=== PATIENT | female | born 1965 | race Caucasian/White ===

== ENCOUNTER 2017-09-18 07:21 | Inpatient (IN) | payer OTHER ==
[~2017-09-18] VITALS: Ht 167.6 cm; Wt 91.6 kg
[2017-09-18 07:26] VITALS: BP 120/78
--- NOTE | 2017-09-18 07:30 | NUR ---
RECEIVED PT FROM MOVING WORKER NURSE. PT ASLEEP IN BED. BED IN LOWEST POSITION. CALL LIGHT WITHIN REACH. Addendum: 09/18/17 at 1503 by Bushra Vidal RN DISCARD WRONG PT Addendum: 09/18/17 at 1503 by Bushra Vidal RN DISCARD WRONG PT
--- NOTE | 2017-09-18 07:32 | NUR ---
PT. CAME INTO ED W/ABD PAIN X 2 DAYS. PT DENIES ANY VOMITING, BUT STARTED W/ NAUSEA TODAY. PT. HAS 9/10 PAIN ALL OVER ABD, PT. STATES "MY APPETITE HAS DECREASED BECAUSE EVERYTIME I EAT MY STOMACH HURTS". RR EVEN AND UNLABORED. ABD ROUND AND SOFT AND TENDER UPON PALPATION. DENIES SOB/ CP, AND COUGH AT THIS TIME. NO MEDICAL HX AND NO ALLERGIES. PT. AAOX4. Babar ALCANTAR NOTIFIED. WILL CONTINUE TO MONITOR.
[2017-09-18] MEDS ORDERED: NACL 0.9% 1,000 ML IV ONE (08:05)
[2017-09-18] MEDS ORDERED: METOCLOPRAMIDE 10 MG/2 ML INJ VIAL IVP ONE (08:05)
[2017-09-18] MEDS ORDERED: KETOROLAC 30 MG/ML VIAL IVP ONE (08:05)
--- NOTE | 2017-09-18 08:30 | NUR ---
PT. IN BED RESTING, VSS, RR EVEN AND UNLABORED, BED IN LOWEST POSITION. WILL CONTINUE TO MONITOR.
[2017-09-18 08:35] LABS: APPEARANCE,URINE CLEAR (CLEAR); BILIRUBIN,URINE NEGATIVE (NEGATIVE); BLOOD, URINE 1+ (NEGATIVE); COLOR,URINE YELLOW (YELLOW); LEUKOCYTE ESTERASE ,URINE TRACE (NEGATIVE); NITRITE, URINE NEGATIVE (NEGATIVE); UGLUCOSE NEGATIVE (NEGATIVE)
[2017-09-18 08:37] LABS: BASOPHILS % (AUTO) 0.2 % (0.0-2.0); EOSINOPHILS % (AUTO) 0.1 % (0.0-4.0); HEMATOCRIT 39.5 % (36-48); HEMOGLOBIN 12.9 g/dL (12.0-16.0); LYMPHOCYTES # (AUTO) 1.1 K/uL (2.5-16.5); LYMPHOCYTES % (AUTO) 13.4 % (20.5-51.1); MEAN CORPUSCULAR HEMOGLOBIN 25 pg (27-31); MEAN CORPUSCULAR HGB CONC 33 g/dL (33-37); MEAN CORPUSCULAR VOLUME 76.3 fL (80-94); MONOCYTES # (AUTO) 0.5 K/uL (0.8-1.0); MONOCYTES % (AUTO) 6.5 % (1.7-9.3); NEUTROPHILS # (AUTO) 6.3 K/uL (1.8-7.7); NEUTROPHILS % (AUTO) 79.8 % (42.2-75.2); PLATELET COUNT (AUTO) 159 K/uL (140-450); RED BLOOD CELL COUNT(AUTO) 5.17 MIL/uL (4.20-5.40); RED CELL DISTRIBUTION WIDTH 13.6 % (11.6-13.7); WHITE BLOOD COUNT (AUTO) 7.9 K/uL (4.8-10.8)
[2017-09-18 08:57] LABS: CARBON DIOXIDE 28.4 mmol/L (21-32); CREATININE 0.8 mg/dL (0.6-1.3); POTASSIUM 3.4 mmol/L (3.5-5.1)
[2017-09-18 09:01] LABS: TOTAL BILIRUBIN 0.5 mg/dL (0.0-1.0)
[2017-09-18 09:06] LABS: RBC,URINE 0-5 (RARE) /HPF (0-5)
--- NOTE | 2017-09-18 09:30 | NUR ---
DUE MEDICATIONS GIVEN. WILL MONITOR V/S FOR HIGH B/P/ FAMILY AT BEDSIDE. EDUCATED PROVIDED ABOUT PLAN OF CARE. IV SITE WILL BE MOVED DUE TO BEING NOT PATENT. CALL LIGHT WITHIN REACH. WILL CONTINUE TO DO FREQ CHECKS. Addendum: 09/18/17 at 1508 by Bushra Vidal RN WRONG PT DISCARD
[2017-09-18] MEDS ORDERED: MORPHINE SULFATE 4 MG/ML SYR IVP ONE (10:15)
--- NOTE | 2017-09-18 10:17 | NUR ---
pt. resting in bed , pt. states " my pain is less now at a 3/10". Pt. AAOx3. Bed in lowest position. will continue to monitor.
[2017-09-18] MEDS ORDERED: MORPHINE SULFATE 4 MG/ML SYR IVP PRN (10:40)
[2017-09-18] MEDS ORDERED: ACETAMINOPHEN 325 MG TAB PO PRN (10:40)
[2017-09-18] MEDS ORDERED: ONDANSETRON 4 MG/2 ML VIAL IVP PRN (10:40)
[2017-09-18] MEDS ORDERED: MORPHINE SULFATE 2 MG/ML SYR IVP PRN (10:40)
[2017-09-18] MEDS ORDERED: HYDROcodone/APAP 5/325 MG 1 TAB TAB PO PRN (10:40)
--- NOTE | 2017-09-18 11:11 | NUR ---
Patient will be admitted to care of dr. Woodward . Admited to med surg . Will go to room 106A. Belongings list completed. Report to austen austin .
[2017-09-18 12:20] VITALS: BP 100/56
--- NOTE | 2017-09-18 12:20 | NUR ---
RECEIVED PT FROM ED NURSE. PT WALKED TO BED FROM [facility]. AAOX4, NO ACUTE DISTRESS, ABLE TO FOLLOW COMMANDS, IV LINE PATIENT. STARTED NACL @75 ML/HR. V/S STABLE, NO COMPLAINS OF PAIN. HAS NO SKIN BREAKDOWN. WILL GIVE DUE MEDICATIONS. PLAN OF CARE REVIEWED AND QUESTIONS ANSWERED. WILL CONTINUE FREQ ROUNDS. BED IN LOWEST POSITION, CALL, LIGHT WITH IN REACH, ORIENTATED TO ROOM AND HOSPITAL RULES.
[2017-09-18] MEDS ORDERED: FAMOTIDINE 20 MG/2 ML VIAL IV SCH (13:08)
--- NOTE | 2017-09-18 14:30 | NUR ---
PATIENT RESTING IN BED. DUE MEDICATIONS WILL BE GIVEN. CALL LIGHT WITHIN REACH, POSSESSIONS WITHIN REACH, BED IN LOWEST POSITION. WILL ENSURE FREQ ROUNDS.
--- NOTE | 2017-09-18 19:00 | NUR ---
PT ENDORSED TO CUT OFF SAWYER NURSE. PT IS STILL NPO. IV SITE WILL BE CHANGED. FAMILY AT BEDSIDE. Addendum: 09/18/17 at 1938 by Bushra Vidal RN FOLLOW UP WITH DR Sapna DIAS
--- NOTE | 2017-09-18 19:01 | NUR ---
RECEIVED BEDSIDE REPORT FROM DAY SHIFT NURSE RENO RN, PT STABLE, NO DISTRESS NOTED, IV TO L HAND 20G, PT STATED IT IS PAINFUL TO TOUCH AND FLUSH, WILL PUT IN NEW IV, PT ON ROOM AIR NO SOB, PT STATED PAIN IS TOLERABLE AT THIS MOMENT, INITIAL ASSESSMENT DONE, ALL SAFETY PRECAUTION MET, CALL LIGHT WITHIN REACH, FAMILY AT BESIDE, WILL CONTINUE TO MONITOR.
--- NOTE | 2017-09-18 19:40 | NUR ---
CALLED DR. SOTELO REGARDING PT CT RESULT, STATED UNDERSTANDING AND STATED THAT HE WILL SEE THE PATIENT.
[2017-09-18] MEDS: NACL 0.9% 1,000 ML IV SCH ×2 (19:55→23:56)
--- NOTE | 2017-09-18 19:55 | NUR ---
NEW IV INSERTED ON THE R HAND 22G, PATENT INTACT, OLD IV 20G FROM THE L HAND TAKEN OUT, PT TOLERATED WELL, CATHETER INTACT, PT STABLE, NO DISTRESS NTOED, CALL LIGHT WITHIN REACH, WILL CONTINUE TO MONITOR.
[2017-09-18] MEDS ORDERED: KETOROLAC 30 MG/ML VIAL IVP PRN (20:10)
--- NOTE | 2017-09-18 20:15 | NUR ---
PT STATED FEELING PAIN, BUT STATED THAT SHE DOES NOT WANT TO TAKE MORPHINE BECAUSE IT CAUSES HER TO HAVE NAUSEA AND SHE ALSO DOES NOT WANT TO TAKE NORCO BECAUSE IT CAUSES HER TO FEEL DIZZY, CALLED DR. CRYSTAL WHO IS GLUE MILL OPERATOR FOR DR. TARIQ DR. STATED TO GIVE PT TORADOL IVP 30MG, Q6H PRN PAIN. ENTERED IN 'S ORDER TO THE SYSTEM.
[2017-09-18] MEDS ORDERED: KETOROLAC 30 MG/ML VIAL ONE (20:17)
--- NOTE | 2017-09-18 20:20 | NUR ---
[facility] IS NOT AVAILABLE, OVERWRITTEN TORADOL 30MG, PER MD ORDER, ADMINISTERED TO PT, PT TOLERATED WELL, NO DISTRESS NOTED, CALL LIGHT WITHIN REACH, WILL CONTINUE TO MONITOR.
--- NOTE | 2017-09-18 22:01 | NUR ---
CHECKED ON PT, PT RESTING, NO DISTRESS NOTED, CALL LIGHT WITHIN REACH, WILL CONTINUE TO MONITOR.
[2017-09-19] VITALS: BP 100/63
--- NOTE | 2017-09-19 00:10 | NUR ---
CHECKED ON PT, PT SLEEPING, EASY TO AROUSE, V/S TAKEN, WNL, NO DISTRESS NOTED, CALL LIGHT WITHIN REACH, WILL CONTINUE TO MONITOR.
--- NOTE | 2017-09-19 03:04 | NUR ---
CHECKED ON PT, PT SLEEPING, NO DISTRESS NOTED, CALL LIGHT WITHIN REACH, WILL CONTINUE TO MONITOR.
--- NOTE | 2017-09-19 04:34 | NUR ---
RECEIVED PT FROM JOÃO CONTINUITY OF CARE. PT IS RESTING QUIETLY.
--- NOTE | 2017-09-19 04:34 | NUR ---
ENDORSED PT TO SANTOSH RUIZ, FOR CONTINUOUS OF CARE, PT IN STABLE CONDITION, NO DISTRESS NOTED, CALL LIGHT WITHIN REACH.
[2017-09-19] MEDS: NACL 0.9% 1,000 ML IV SCH ×2 (05:14→20:44)
--- NOTE | 2017-09-19 06:46 | NUR ---
PT RESTING COMFORTABLY, NO SIGNS OF RESPIRATORY DISTRESS OR C/O PAIN.
--- NOTE | 2017-09-19 07:29 | NUR ---
ENDORSED PLAN OF CARE TO DAY SHIFT NURSE DEMARCO RN, PT STABLE, NO DISTRESS NOTED, CALL LIGHT WITHIN REACH.
--- NOTE | 2017-09-19 07:30 | NUR ---
RECEIVED REPORT FROM THE NIGHTSHIFT NURSE AT BEDSIDE FOR CONTINUITY OF CARE. PT IS AWAKE AND ORIENTED. INTRODUCED MYSELF AND UPDATED THE BOARD. PT IS MS, AMBULATORY, SKIN INTACT. LBM: 09/19. IV ON R HAND 22G NS AT 75ML. AWAITING ON DR. SOTELO FOR CONSULT FOR CHOLELITHIASIS. V/S WITHIN NORMAL. DENIES PAIN AND NAUSEA. WILL CONTINUE TO MONITOR PT.
[2017-09-19 08:00] VITALS: BP 115/72
[2017-09-19 08:20] LABS: ALBUMIN 2.7 g/dL (3.4-5.0); ANION GAP 12.5 (8-16); CARBON DIOXIDE 25.4 mmol/L (21-32); CREATININE 0.7 mg/dL (0.6-1.3); POTASSIUM 3.9 mmol/L (3.5-5.1); TOTAL BILIRUBIN 0.3 mg/dL (0.0-1.0)
[2017-09-19 08:40] LABS: BASOPHILS % (AUTO) 0.3 % (0.0-2.0); EOSINOPHILS # (AUTO) 0.1 K/uL (0-0.4); EOSINOPHILS % (AUTO) 1.1 % (0.0-4.0); LYMPHOCYTES # (AUTO) 1.8 K/uL (2.5-16.5); LYMPHOCYTES % (AUTO) 22.4 % (20.5-51.1); MEAN CORPUSCULAR HEMOGLOBIN 25 pg (27-31); MEAN CORPUSCULAR HGB CONC 32 g/dL (33-37); MEAN CORPUSCULAR VOLUME 77.7 fL (80-94); MONOCYTES % (AUTO) 11.7 % (1.7-9.3); NEUTROPHILS # (AUTO) 5.2 K/uL (1.8-7.7); NEUTROPHILS % (AUTO) 64.5 % (42.2-75.2); PLATELET COUNT (AUTO) 164 K/uL (140-450); RED BLOOD CELL COUNT(AUTO) 4.89 MIL/uL (4.20-5.40); RED CELL DISTRIBUTION WIDTH 13.8 % (11.6-13.7); WHITE BLOOD COUNT (AUTO) 8.1 K/uL (4.8-10.8)
[2017-09-19] MEDS: FAMOTIDINE 20 MG/2 ML VIAL IV SCH (08:44)
--- NOTE | 2017-09-19 08:50 | NUR ---
ADMINISTERED MORNING MED. PT TOLERATED WELL. WILL CONTINUE TO MONITOR PT. PT HAS FAMILY MEMBER VISITING.
--- NOTE | 2017-09-19 09:21 | NUR ---
PATIENT HAS BEEN SCREENED AND CATEGORIZED HIGH NUTRITION RISK. PATIENT WILL BE SEEN WITHIN 1-2 DAYS OF ADMISSION. 09/19/[address]
[2017-09-19] MEDS ORDERED: LEVOFLOXACIN 500 MG/D5W PREMIX 100 ML IV SCH (11:00)
--- NOTE | 2017-09-19 11:19 | NUR ---
ADMINISTERED LEVAQUIN. PT TOLERATING WELL. WILL CONTINUE TO MONITOR.
--- NOTE | 2017-09-19 11:47 | NUR ---
Clinical Reviewed faxed to [facility] at [phone]
[2017-09-19] MEDS: metroNIDAZOLE 500 MG/NS PREMIX 100 ML IV SCH ×2 (12:31→20:22)
--- NOTE | 2017-09-19 12:38 | NUR ---
ADMINISTERED FLAGYL. PT TOLERATING WELL. SPOUSE AT BEDSIDE. WANTED TO KNOW IF SHE WAS HAVING SURGERY. NOTIFIED FAMILY, WE ARE WAITING FOR DR SOTELO. WILL KEEP THEM UPDATED.
--- NOTE | 2017-09-19 14:13 | NUR ---
09/19/17 RD INITIAL ASSESSMENT COMPLETED PLEASE REFER TO NUTRITION ASSESSMENT UNDER CARE ACTIVITY FOR ESTIMATED NUTRITIONAL NEEDS. 1. CONTINUE NPO MEDICALLY APPROPRIATE 2. IF/WHEN MEDICALLY APPROPRIATE FOR DIET ADVANCEMENT, CONSIDER A REGULAR DIET, TOLERATED 3. RD TO FOLLOW-UP 3-5 DAYS, MODERATE RISK ANAND AMBROSIO, RD
--- NOTE | 2017-09-19 15:10 | NUR ---
PT UP AND ABOUT TO THE RESTROOM. NO SIGNS OF DISTRESS. NO COMPLAINTS. WILL CONTINUE TO MONITOR PT.
[2017-09-19 16:00] VITALS: BP 113/71
--- NOTE | 2017-09-19 17:30 | NUR ---
PT VISITING WITH FAMILY. NO SIGNS OF DISTRESS. WILL CONTINUE TO MONITOR PT.
--- NOTE | 2017-09-19 19:15 | NUR ---
ENDORSE PT TO THE STATISTICS TEACHER NURSE AT BEDSIDE FOR CONTINUITY OF CARE. PT IS IN STABLE CONDITION. AWAITING DR. SOTELO.
--- NOTE | 2017-09-19 19:16 | NUR ---
REPORT RECEIVED FROM AM NURSE. PT IN STABLE CONDITION. WILL CONTINUE TO MONITOR.
--- NOTE | 2017-09-19 19:50 | NUR ---
PT IS IN STABLE CONDITION. VS STABLE. PT IS AMBULATORY WITH STRONG GAIT. SKIN INTACT, DRY, AND WARM. IV SITE PATENT AND INTACT 22G R HAND. PT AAOX4. PT DENIES ANY PAIN. WILL CONTINUE TO MONITOR.
--- NOTE | 2017-09-19 20:22 | NUR ---
PT COMPLAINS OF ORELLANA. TYL 650MG GIVEN ALONG WITH PM MEDS. PT TOLERATED WELL. WILL CONTINUE TO MONITOR.
--- NOTE | 2017-09-19 21:00 | NUR ---
PT TAKEN FOR CT SCAN OF THE PELVIS. IV DC FOR PROCEDURE.
--- NOTE | 2017-09-19 21:10 | NUR ---
PT RETURNED FROM CT SCAN. IV RECONNECTED.
--- NOTE | 2017-09-19 22:40 | NUR ---
PT WANTS TO SHOWER. IV DISCONNECTED AND WRAPPED.
--- NOTE | 2017-09-19 22:50 | NUR ---
PT RETURNED TO ROOM AFTER SHOWER. IV RECONNECTED.
[2017-09-20] VITALS: BP 111/66
--- NOTE | 2017-09-20 01:24 | NUR ---
PT ASLEEP IN BED COMFORTABLY. DOES NOT SHOW SIGNS OF DISTRESS. WILL CONTINUE TO MONITOR.
--- NOTE | 2017-09-20 03:50 | NUR ---
PT ASLEEP IN BED. DOES NOT SHOW SIGNS OF ANY ACUTE DISTRESS. WILL CONTINUE TO MONITOR.
[2017-09-20] MEDS: metroNIDAZOLE 500 MG/NS PREMIX 100 ML IV SCH (04:53)
[2017-09-20 06:54] LABS: BASOPHILS % (AUTO) 0.5 % (0.0-2.0); EOSINOPHILS # (AUTO) 0.1 K/uL (0-0.4); EOSINOPHILS % (AUTO) 1.9 % (0.0-4.0); HEMOGLOBIN 11.3 g/dL (12.0-16.0); LYMPHOCYTES % (AUTO) 31.8 % (20.5-51.1); MEAN CORPUSCULAR HEMOGLOBIN 25 pg (27-31); MEAN CORPUSCULAR HGB CONC 32 g/dL (33-37); MEAN CORPUSCULAR VOLUME 76.8 fL (80-94); MONOCYTES # (AUTO) 0.8 K/uL (0.8-1.0); MONOCYTES % (AUTO) 12.3 % (1.7-9.3); NEUTROPHILS # (AUTO) 3.4 K/uL (1.8-7.7); NEUTROPHILS % (AUTO) 53.5 % (42.2-75.2); PLATELET COUNT (AUTO) 182 K/uL (140-450); RED BLOOD CELL COUNT(AUTO) 4.55 MIL/uL (4.20-5.40); RED CELL DISTRIBUTION WIDTH 13.4 % (11.6-13.7); WHITE BLOOD COUNT (AUTO) 6.3 K/uL (4.8-10.8)
--- NOTE | 2017-09-20 07:10 | NUR ---
REPORT GIVEN TO AM NURSE. PT IN STABLE CONDITION.
--- NOTE | 2017-09-20 07:15 | NUR ---
RECEIVED PT FROM [facility] SHIFT NURSES[facility], PT IS AWAKE AND SIDE RAILS ARE UP, SPEAKS TUNISIAN. PT HAS A FLUID OF NS RUNNING AT 75ML/HR AT RIGHT HAND G. 20, INTACT AND ASYMPTOMATIC. PT IS AOX4 AND DENIES PAIN AT THIS TIME. CALL LIGHT WITHIN REACH AND NO SIGN OF DISTRESS NOTED. WILL CONTINUE TO MONITOR.
[2017-09-20 07:16] LABS: ALBUMIN 2.6 g/dL (3.4-5.0); CARBON DIOXIDE 22.5 mmol/L (21-32); CREATININE 0.6 mg/dL (0.6-1.3); POTASSIUM 3.5 mmol/L (3.5-5.1); TOTAL BILIRUBIN 0.3 mg/dL (0.0-1.0)
[2017-09-20 08:00] VITALS: BP 130/66
--- NOTE | 2017-09-20 08:20 | NUR ---
PT IS AWAKE AND VITAL SIGNS TAKEN AND IS STABLE. CALL LIGHT WITHIN REACH AND NO SIGN OF DISTRESS NOTED. WILL CONTINUE TO MONITOR.
[2017-09-20] MEDS: FAMOTIDINE 20 MG/2 ML VIAL IV SCH (09:33)
--- NOTE | 2017-09-20 09:33 | NUR ---
PT IS AWAKE AND SEATED ON THE BED, MEDICATION GIVEN VIA IV PUSH AND PT TOLERATED IT. NO SIGN OF DISTRESS NOTED AND IV LINE IS PATENT AND ASYMPTOMATIC. CALL LIGHT WITHIN REACH AND WILL CONTINUE TO MONITOR.
[2017-09-20] MEDS ORDERED: DIPHENOXYLATE /ATROPINE 2.5 MG TAB PO PRN (10:15)
--- NOTE | 2017-09-20 10:18 | NUR ---
PT'S DIET WAS TRANSITIONED FROM FULL LIQUID TO BLAND/SOFT DIET, ORDERED MADE BY DR. POTTER, ORDER ACKNOWLEDGED.
[2017-09-20] MEDS ORDERED: [UNRECOGNIZED DRUG - CODE] PO (10:21)
[2017-09-20] MEDS ORDERED: METR500T1 PO (10:21)
[2017-09-20] MEDS ORDERED: LEVO500T2 PO (10:21)
--- NOTE | 2017-09-20 10:21 | NUR ---
ACKNOWLEDGED A DISCHARGED ORDER FROM DR. POTTER FOR THE PT, WILL FACILITATE THE DISCHARGE PROCESS.
[2017-09-20] MEDS ORDERED: metroNIDAZOLE 500 MG TAB PO SCH (13:00)
--- NOTE | 2017-09-20 13:17 | NUR ---
PT IS AWAKE AND SEATED ON THE BED AND JUST FINISHED EATING HER LUNCH, MEDICATION GIVEN AND PT TOLERATED IT. NO SIGN OF DISTRESS NOTED.
--- NOTE | 2017-09-20 13:19 | NUR ---
Clinical review faxed to [facility] at [phone]
--- NOTE | 2017-09-20 15:00 | NUR ---
DISCHARGED PT WITH THE COMPANY OF THE COUSIN, PT IS STABLE AT THIS TIME. IV LINE AND ARMBANDS REMOVED.
[2017-09-21] MEDS ORDERED: LEVOFLOXACIN 500 MG TAB PO SCH (09:00)
== END 2017-09-20 15:00 | disposition home or self-care (01) | DRG 249 ==
LOC: MED 07:21 → MTU 10:40
PROVIDERS: ADMIT Internal Medicine; ATTEND Internal Medicine
DX: K52.9 Noninfective gastroenteritis and colitis, unspecified (principal); E44.0 Moderate protein-calorie malnutrition; E87.1 Hypo-osmolality and hyponatremia; E83.51 Hypocalcemia; K80.20 Calculus of gallbladder without cholecystitis without obstruction; E87.6 Hypokalemia; R74.0 Nonspecific elevation of levels of transaminase and lactic acid dehydrogenase [LDH]; R94.5 Abnormal results of liver function studies; Z98.1 Arthrodesis status
CPT/HCPCS: 36415; 72192; 74150; 76705; 80053; 81001; 81025; 83690; 85025; 87045; 87081; 87086; 96361; 96374; 96375; 99285; J1885; J1956; J3490; J7030; Q0092